=== PATIENT | female | born 1980 | race Caucasian/White ===

== ENCOUNTER 2017-03-31 20:27 | Emergency (ER) | payer OTHER ==
[~2017-03-31] VITALS: Ht 157.5 cm; Wt 59.0 kg
--- NOTE | ~2017-03-31 | CR63 ---
[facility] A Service of [facility] [place] RADIOLOGY TEXT RESULTS PATIENT: GIULIA RICHARDSON LOCATION: [facility] [place] : [birth year] UNIT #: [id number] AGE: [address]: Trevon Talavera MD SEX: F ORDER DR: [id number] [address] [address] [id number] E MR#: [id number] Acc #: [id number] NAME: GIULIA RICHARDSON : 1980 SEX: F STUDY DATE/TIME: 03/31/2017 21:24 UNIT: SED ROOM: STUDY DESCRIPTION: CR Chest 2 View Attending Physician: Trevon Talavera M.D. Ordering Physician: Trevon Talavera M.D. Primary Care Physician: No Primary Care Physician MEDICAL IMAGING REPORT This report is preliminary unless electronic signature is present. EXAM Chest, 2 views, dated 03/31/2017. COMPARISON Chest, 2 views, dated 12/04/2012. HISTORY Cough and right upper quadrant pain since last week. FINDINGS Two views of the chest were obtained. 1.2 cm left lower lobe lung nodule is noted, stable. There is a tiny right upper lobe lung nodule measuring 2.5 mm, stable. Remaining lungs are well-aerated. Heart, mediastinum and bones are within normal limits. IMPRESSION 1. Two lung nodules are noted involving the right upper lobe and left lower lobe. Largest 1 is 1.2 cm in the left lower lobe. It is stable in the last 4 years and is suggestive of benign calcified nodule suggestive of old granulomatous disease. 2. No acute cardiopulmonary disease. Dictated by... Ofelia Santiago M.D. THIS IS AN ELECTRONICALLY VERIFIED REPORT Ofelia Santiago M.D. at 04/01/2017 5:06 PM CPR/pc TD: 04/01/2017 07:54 JOB #: [id number] [facility] A Service of [facility] [place] RADIOLOGY TEXT RESULTS PATIENT: GIULIA RICHARDSON LOCATION: SED : 80 UNIT #: [id number] AGE: [address]: Trevon Talavera MD SEX: F ORDER DR: MEDICAL IMAGING REPORT Page 1 of 1
[~2017-03-31 20:27] MED LIST: ALBUTEROL MININEB NEB; ALBUTEROL17 G1 INH; ALBUTEROL17 GM; ALBUTEROL17 GM INH; AMOXICILLIN PO; AMOXIL500 MG PO; CLEOCIN PO; CLEOCIN150 MG PO; DICLOFENAC PO; DOXYCYCLINE HY100 M1 PO; FLAGYL PO; IBUPROFEN PO; IBUPROFEN600 MG PO; IBUPROFEN800 MG PO; KEFLEX500 M1 PO; KEFLEX500 MG PO; LORTAB 10-5001 EACH PO; LORTAB 7.5-5001 TAB PO; MOTRIN600 M1 PO; NO MEDICATIONS; PEN-VEE K PO; PHENERGAN W/CO120 ML PO; PHENERGAN25 M1 PO; PREDNISONE PO; ROBAXIN500 MG PO; TYLENOL #3 PO; ULTRAM PO; VEETIDS 500500 M1 PO; VIBRAMYCIN100 M1 DOB; VICODIN 5/500 T1 TAB PO; VOLTAREN50 MG PO; VOLTAREN75 MG PO; ZITHROMAX1 G/PKT PO
[2017-03-31 20:55] LABS: URINE SOURCE CLEAN CATCH
[2017-03-31 20:57] LABS: URINE APPEARANCE HAZY; URINE BILIRUBIN POS (NEG); URINE BLOOD TRACE-INTACT (NEG); URINE COLOR YELLOW; URINE GLUCOSE NEG (NORM); URINE KETONE 1+ (NEG); URINE LEUKOCYTE ESTERASE 1+ (NEG); URINE NITRATE NEG (NEG); URINE PH 5.5 (5-8); URINE PROTEIN 2+ (NEG); URINE SPECIFIC GRAVITY >=1.030 (1.003-1.035)
[2017-03-31 20:58] LABS: MICRO INDICATED? YES
[2017-03-31 20:59] LABS: CULTURE INDICATED? YES; URINE BACTERIA 2+ (NEG); URINE SQUAMOUS EPITHELIAL CELL MODERATE /[HPF]; URINE TRANSITIONAL EPI CELLS FEW /[HPF]; URINE WBC 25-50 /[HPF] (0-5)
[2017-03-31 21:00] LABS: URINE AMORPHOUS SEDIMENT AMORP URATES; URINE MUCUS PRESENT
[2017-03-31 21:05] LABS: BASOPHIL# 0.1 X10e3 (0-0.3); BASOPHIL% 0.4 % (0-2.5); EOSINOPHIL% 0.1 % (0.0-7.0); HEMATOCRIT 37.7 % (35.0-45.0); HEMOGLOBIN 12.7 gm/dL (12.0-16.0); LYMPHOCYTE# 1.5 X10e3 (1.0-3.5); LYMPHOCYTE% 8.4 % (17.0-45.0); MEAN CELL VOLUME 88.3 FL (83-96); MEAN CORPUSCULAR HEMOGLOBIN 29.9 PG (28-34); MEAN CORPUSCULAR HGB CONC 33.8 g/dL (30-36); MEAN PLATELET VOLUME 8.5 FL (6.5-11.5); MONOCYTE# 1.2 X10e3 (0-1.0); MONOCYTE% 6.6 % (3.0-12.0); NEUTROPHIL# 14.9 X10e3 (1.5-7.1); NEUTROPHIL% 84.5 % (40-75); PLATELET COUNT 251 X10e3 (140-420); RED BLOOD COUNT 4.27 X10e (3.90-5.30); WHITE BLOOD COUNT 17.6 X10e3 (4.0-10.5)
[2017-03-31 21:14] LABS: DIFF IND NO
[2017-03-31 21:29] LABS: ALBUMIN SERUM 4.1 g/dL (3.5-5.0); BILIRUBIN, DIRECT 0.2 mg/dL (0.0-0.2); BILIRUBIN,INDIRECT 0.8 mg/dL (0.0-0.9); BUN/CREATININE RATIO 22.5; CALCIUM SERUM 8.7 mg/dL (8.4-10.2); CREATININE SERUM 0.8 mg/dL (0.6-1.4); GLOM FILT RATE Estimated 94.3 mL/min (>60); POTASSIUM 3.4 mmol/L (3.5-5.1)
== END 2017-04-01 | disposition home or self-care (01) ==
LOC: SED 20:27
PROVIDERS: Emergency Medicine
DX: J20.9 Acute bronchitis, unspecified (principal); N39.0 Urinary tract infection, site not specified; Z88.2 Allergy status to sulfonamides; J45.909 Unspecified asthma, uncomplicated; F17.200 Nicotine dependence, unspecified, uncomplicated
CPT/HCPCS: 36415; 71020; 80048; 80076; 81003; 83605; 83690; 84703; 85025; 87040; 87086; 94640; 96361; 96365; 96375; 99284; J1885; J1956; J2270; J2405